=== PATIENT | male | born 1990 | race Caucasian/White ===

== ENCOUNTER 2019-07-04 00:26 | Emergency (ER) | payer OTHER ==
[~2019-07-04] VITALS: Ht 154.9 cm; Wt 67.1 kg
[2019-07-04 00:27] VITALS: BP 119/73
[2019-07-04] MEDS ORDERED: TDAP [DIPH/PERTUSSIS/TET] 0.5 ML VIAL IM ONE ×2 (01:00→01:06)
[2019-07-04] MEDS ORDERED: AMOX/CLAVULANATE 875 MG TABLET PO ONE (01:00)
[2019-07-04] MEDS ORDERED: AMOX/CLAVULANATE 875 MG TABLET ONE (01:06)
== END 2019-07-04 01:19 | disposition home or self-care (01) ==
LOC: ER 00:26
DX: S30.811A Abrasion of abdominal wall, initial encounter (principal); S90.811A Abrasion, right foot, initial encounter; Z60.2 Problems related to living alone; W54.0XXA Bitten by dog, initial encounter; Y93.89 Activity, other specified; Y92.89 Other specified places as the place of occurrence of the external cause; Y99.8 Other external cause status
CPT/HCPCS: 90471; 90715; 99283; A6403